=== PATIENT | female | born 1985 | race African-American/Black ===

== ENCOUNTER 2023-03-17 20:24 | Emergency (ER) | payer BC ==
[~2023-03-17] VITALS: Ht 157.5 cm; Wt 62.6 kg
[2023-03-17] MEDS ORDERED: ONDANSETRON HCL 4 MG TABLET ONE (21:13)
[2023-03-17] MEDS ORDERED: ONDANSETRON HCL 4 MG TABLET PO ONE (21:15)
[2023-03-17] MEDS ORDERED: ONDA4TAB5 PO (22:33)
[2023-03-17] MEDS ORDERED: IBUP-1955 PO (22:33)
[2023-03-17 22:39] VITALS: BP 118/78; TEMP 98; O2SAT 99
== END 2023-03-17 22:40 | disposition home or self-care (01) ==
LOC: ER 20:24
DX: S16.1XXA Strain of muscle, fascia and tendon at neck level, initial encounter (principal); S29.012A Strain of muscle and tendon of back wall of thorax, initial encounter; Z79.1 Long term (current) use of non-steroidal anti-inflammatories (NSAID); Z79.899 Other long term (current) drug therapy; V49.9XXA Car occupant (driver) (passenger) injured in unspecified traffic accident, initial encounter; Y93.89 Activity, other specified; Y92.89 Other specified places as the place of occurrence of the external cause; Y99.8 Other external cause status
CPT/HCPCS: 70160; 72072; A4663; Q0162